=== PATIENT | male | born 1955 | race Caucasian/White ===

== ENCOUNTER 2022-03-31 22:08 | Inpatient (IN) | payer OTHER, MEDICAID ==
[~2022-03-31] VITALS: Ht 167.6 cm; Wt 74.8 kg
[2022-03-31 22:28] VITALS: BP_SYST 152
[2022-03-31] MEDS ORDERED: NACL 0.9% 1,000 ML IV ONE (22:45)
[2022-03-31 23:41] LABS: CALCIUM 8.8 mg/dL (8.4-11.0); CREATININE 1.39 mg/dL (0.55-1.30)
[2022-03-31 23:44] LABS: BASOPHILS % (AUTO) 0.3 % (0.0-2.0); EOSINOPHILS # (AUTO) 0.3 K/uL (0.0-0.4); HEMATOCRIT 37.4 % (36-54); HEMOGLOBIN 12.7 g/dL (14.0-18.0); LYMPHOCYTES # (AUTO) 0.4 K/uL (1.0-5.5); LYMPHOCYTES % (AUTO) 4.2 % (20.5-51.5); MEAN CORPUSCULAR HEMOGLOBIN 31 pg (27-31); MEAN CORPUSCULAR HGB CONC 34 % (32-36); MEAN CORPUSCULAR VOLUME 91 fL (79.0-98.0); MONOCYTES # (AUTO) 0.3 K/uL (0.0-1.0); MONOCYTES % (AUTO) 3.8 % (1.7-9.3); NEUTROPHILS # (AUTO) 7.6 K/uL (1.8-7.7); NEUTROPHILS % (AUTO) 88.7 % (40.0-70.0); PLATELET COUNT (AUTO) 170 K/uL (130-430); RED CELL DISTRIBUTION WIDTH 14.1 % (9.0-15.0); WHITE BLOOD COUNT (AUTO) 8.6 K/uL (4.8-10.8)
[2022-03-31] MEDS ORDERED: VANCOMYCIN HCL 1,000 MG in NS 250 ML IV ONE (23:45)
[2022-03-31] MEDS ORDERED: cefTRIAXone 1 GM IVPB PREMIX 50 ML IV ONE (23:45)
[2022-03-31 23:46] LABS: ALBUMIN 3.5 g/dL (3.4-4.8); TOTAL BILIRUBIN 0.7 mg/dL (0.0-1.0)
[2022-04-01] MEDS ORDERED: VANCOMYCIN HCL 1000 MG/VIAL IV ONE (00:03)
[2022-04-01 00:23] LABS: BILIRUBIN,URINE NEGATIVE (NEGATIVE); BLOOD, URINE NEGATIVE (NEGATIVE); CLARITY/URINE CLEAR (CLEAR); COLOR,URINE YELLOW (YELLOW); GLUCOSE,URINE NEGATIVE (NEGATIVE); KETONES,URINE NEGATIVE (NEGATIVE); LEUKOCYTE ESTERASE ,URINE NEGATIVE (NEGATIVE); NITRITE, URINE NEGATIVE (NEGATIVE); PROTEIN URINE NEGATIVE (NEGATIVE); UROBILINOGEN,URINE 0.2 (0.2-1.0)
[2022-04-01] MEDS ORDERED: ONDANSETRON HCL 4 MG/2 ML VIAL IVP ONE (00:30)
[2022-04-01] MEDS ORDERED: PRED5TAB PO (01:30)
[2022-04-01] MEDS ORDERED: CYCL25CA7 PO (01:30)
[2022-04-01] MEDS ORDERED: CEL250 PO (01:30)
[2022-04-01] MEDS ORDERED: METH1TAB PO (01:30)
[2022-04-01] MEDS ORDERED: TAMS-11 PO (01:30)
[2022-04-01] MEDS ORDERED: SIMV-343 PO (01:30)
[2022-04-01] MEDS ORDERED: ALL300 PO (01:30)
[2022-04-01] MEDS ORDERED: ONDANSETRON HCL 4 MG/2 ML VIAL ONE (02:44)
[2022-04-01] MEDS: ACETAMINOPHEN 325 MG TABLET PO PRN (03:08)
[2022-04-01 06:50] VITALS: BP_SYST 115
[2022-04-01] MEDS ORDERED: ACETAMINOPHEN 325 MG TABLET PO PRN (10:00)
[2022-04-01] MEDS ORDERED: LORazepam 2 MG/ML VIAL IVP PRN (10:00)
[2022-04-01] MEDS ORDERED: predniSONE 5 MG TABLET PO ONE (10:45)
[2022-04-01] MEDS ORDERED: SIMVASTATIN 20 MG TABLET PO ONE (10:45)
[2022-04-01 11:22] VITALS: BP_SYST 111
[2022-04-01] MEDS: TAMSULOSIN HCL 0.4 MG CAP PO SCH (11:35)
[2022-04-01] MEDS: CEFEPIME 1 GM in D5W 50 ML IV SCH (12:42)
[2022-04-01] MEDS ORDERED: NORMAL SALINE 5 ML DISP.SYRIN IVF SCH (14:00)
[2022-04-01] MEDS: ALLOPURINOL 300 MG TABLET (ZYLOPRIM) PO SCH (14:08)
[2022-04-01] MEDS: NORMAL SALINE 5 ML DISP.SYRIN IVF SCH ×2 (14:09→21:54)
[2022-04-01 15:38] VITALS: BP_SYST 122
[2022-04-01 20:00] VITALS: BP_SYST 97
[2022-04-01] MEDS ORDERED: SANDIMMUNE PO SCH (21:00)
[2022-04-01] MEDS ORDERED: NON-FORMULARY MEDICATION (Methenamine Hippurate (Hiprex) 1 TAB) PO SCH (21:00)
[2022-04-01] MEDS ORDERED: METHENAMINE HIPPURATE 1 GM PO SCH (21:00)
[2022-04-01] MEDS: NACL 0.9% 1,000 ML IV SCH (21:49)
[2022-04-01] MEDS: metroNIDAZOLE 500 mg/NS 100 ML IV SCH (21:50)
[2022-04-01] MEDS: SANDIMMUNE PO SCH (21:52)
[2022-04-01] MEDS: mycophenolate mofetiL 250 MG CAPSULE PO SCH (21:53)
[2022-04-01] MEDS: ONDANSETRON HCL 4 MG/2 ML VIAL IVP PRN (22:03)
[2022-04-02 00:31] VITALS: BP_SYST 119
[2022-04-02] MEDS: CEFEPIME 1 GM in D5W 50 ML IV SCH ×2 (00:37→13:53)
[2022-04-02] MEDS: NORMAL SALINE 5 ML DISP.SYRIN IVF SCH ×3 (06:00→21:58)
[2022-04-02 06:13] LABS: BASOPHILS % (AUTO) 0.5 % (0.0-2.0); EOSINOPHILS # (AUTO) 0.3 K/uL (0.0-0.4); EOSINOPHILS % (AUTO) 5.4 % (0.0-4.0); HEMATOCRIT 33.3 % (36-54); HEMOGLOBIN 11.1 g/dL (14.0-18.0); LYMPHOCYTES # (AUTO) 0.7 K/uL (1.0-5.5); LYMPHOCYTES % (AUTO) 11.3 % (20.5-51.5); MEAN CORPUSCULAR HEMOGLOBIN 31 pg (27-31); MEAN CORPUSCULAR HGB CONC 33 % (32-36); MEAN CORPUSCULAR VOLUME 93 fL (79.0-98.0); MONOCYTES # (AUTO) 0.5 K/uL (0.0-1.0); NEUTROPHILS # (AUTO) 4.7 K/uL (1.8-7.7); NEUTROPHILS % (AUTO) 74.8 % (40.0-70.0); PLATELET COUNT (AUTO) 143 K/uL (130-430); RED BLOOD CELL COUNT(AUTO) 3.58 MIL/uL (4.2-6.2); RED CELL DISTRIBUTION WIDTH 14.4 % (9.0-15.0); WHITE BLOOD COUNT (AUTO) 6.3 K/uL (4.8-10.8)
[2022-04-02 07:28] LABS: ERYTHROCYTE SEDIMENTATION RATE 20 MM/HR (0-15)
[2022-04-02 08:09] LABS: CALCIUM 7.8 mg/dL (8.4-11.0); CREATININE 1.26 mg/dL (0.55-1.30); PHOSPHORUS 3.5 mg/dL (2.7-4.5)
[2022-04-02 08:13] VITALS: BP_SYST 124
[2022-04-02] MEDS: NACL 0.9% 1,000 ML IV SCH ×2 (09:24→21:57)
[2022-04-02] MEDS: metroNIDAZOLE 500 mg/NS 100 ML IV SCH ×2 (09:38→21:56)
[2022-04-02] MEDS: mycophenolate mofetiL 250 MG CAPSULE PO SCH ×2 (09:39→21:56)
[2022-04-02] MEDS: SANDIMMUNE PO SCH ×2 (09:39→21:54)
[2022-04-02] MEDS: SIMVASTATIN 20 MG TABLET PO SCH (09:40)
[2022-04-02] MEDS: predniSONE 5 MG TABLET PO SCH (09:40)
[2022-04-02 11:24] VITALS: BP_SYST 123
[2022-04-02] MEDS: TAMSULOSIN HCL 0.4 MG CAP PO SCH (12:49)
[2022-04-02] MEDS: ALLOPURINOL 300 MG TABLET (ZYLOPRIM) PO SCH (12:50)
[2022-04-02 15:21] VITALS: BP_SYST 113
[2022-04-02 20:00] VITALS: BP_SYST 141
[2022-04-03] MEDS: CEFEPIME 1 GM in D5W 50 ML IV SCH ×2 (00:04→13:11)
[2022-04-03 00:39] VITALS: BP_SYST 157
[2022-04-03] MEDS: NORMAL SALINE 5 ML DISP.SYRIN IVF SCH ×3 (05:04→22:00)
[2022-04-03 06:27] LABS: BASOPHILS % (AUTO) 0.4 % (0.0-2.0); EOSINOPHILS # (AUTO) 0.3 K/uL (0.0-0.4); EOSINOPHILS % (AUTO) 5.7 % (0.0-4.0); HEMATOCRIT 31.9 % (36-54); HEMOGLOBIN 10.9 g/dL (14.0-18.0); LYMPHOCYTES # (AUTO) 1.1 K/uL (1.0-5.5); MEAN CORPUSCULAR HEMOGLOBIN 31 pg (27-31); MEAN CORPUSCULAR HGB CONC 34 % (32-36); MEAN CORPUSCULAR VOLUME 90 fL (79.0-98.0); MONOCYTES # (AUTO) 0.6 K/uL (0.0-1.0); MONOCYTES % (AUTO) 8.9 % (1.7-9.3); NEUTROPHILS # (AUTO) 4.1 K/uL (1.8-7.7); PLATELET COUNT (AUTO) 143 K/uL (130-430); RED BLOOD CELL COUNT(AUTO) 3.55 MIL/uL (4.2-6.2); WHITE BLOOD COUNT (AUTO) 6.2 K/uL (4.8-10.8)
[2022-04-03 07:07] LABS: HSV 2 IgG, TYPE SPECIFIC <0.91 index (0.00-0.90)
[2022-04-03 07:15] LABS: ERYTHROCYTE SEDIMENTATION RATE 19 MM/HR (0-15)
[2022-04-03 07:17] LABS: ALBUMIN 2.6 g/dL (3.4-4.8); C-REACTIVE PROTEIN QUANT 1.7 mg/dL (0-0.5); CALCIUM 7.7 mg/dL (8.4-11.0); CREATININE 1.2 mg/dL (0.55-1.30); PHOSPHORUS 3.5 mg/dL (2.7-4.5); TOTAL BILIRUBIN 0.5 mg/dL (0.0-1.0)
[2022-04-03 07:38] VITALS: BP_SYST 126
[2022-04-03] MEDS: metroNIDAZOLE 500 mg/NS 100 ML IV SCH ×2 (09:09→20:57)
[2022-04-03] MEDS: SIMVASTATIN 20 MG TABLET PO SCH (09:11)
[2022-04-03] MEDS: SANDIMMUNE PO SCH ×2 (09:11→21:01)
[2022-04-03] MEDS: predniSONE 5 MG TABLET PO SCH (09:11)
[2022-04-03] MEDS: mycophenolate mofetiL 250 MG CAPSULE PO SCH ×2 (09:12→20:58)
[2022-04-03 12:00] VITALS: BP_SYST 124
[2022-04-03] MEDS: TAMSULOSIN HCL 0.4 MG CAP PO SCH (12:48)
[2022-04-03] MEDS: ALLOPURINOL 300 MG TABLET (ZYLOPRIM) PO SCH (12:49)
[2022-04-03 16:00] VITALS: BP_SYST 128
[2022-04-03 20:00] VITALS: BP_SYST 124
[2022-04-04] VITALS (8 sets, daily range): BP systolic 130–146
[2022-04-04] MEDS: CEFEPIME 1 GM in D5W 50 ML IV SCH ×2 (02:14→15:05)
[2022-04-04] MEDS: NACL 0.9% 1,000 ML IV SCH ×3 (02:17→22:11)
[2022-04-04] MEDS: NORMAL SALINE 5 ML DISP.SYRIN IVF SCH ×3 (06:00→22:10)
[2022-04-04] MEDS: metroNIDAZOLE 500 mg/NS 100 ML IV SCH (09:56)
[2022-04-04 10:01] LABS: BASOPHILS % (AUTO) 0.5 % (0.0-2.0); EOSINOPHILS # (AUTO) 0.4 K/uL (0.0-0.4); EOSINOPHILS % (AUTO) 7.2 % (0.0-4.0); HEMATOCRIT 35.3 % (36-54); HEMOGLOBIN 11.6 g/dL (14.0-18.0); LYMPHOCYTES # (AUTO) 1.4 K/uL (1.0-5.5); LYMPHOCYTES % (AUTO) 23.5 % (20.5-51.5); MEAN CORPUSCULAR HEMOGLOBIN 31 pg (27-31); MEAN CORPUSCULAR HGB CONC 33 % (32-36); MONOCYTES # (AUTO) 0.6 K/uL (0.0-1.0); MONOCYTES % (AUTO) 9.6 % (1.7-9.3); NEUTROPHILS # (AUTO) 3.5 K/uL (1.8-7.7); NEUTROPHILS % (AUTO) 59.2 % (40.0-70.0); PLATELET COUNT (AUTO) 161 K/uL (130-430); RED BLOOD CELL COUNT(AUTO) 3.78 MIL/uL (4.2-6.2); RED CELL DISTRIBUTION WIDTH 14.1 % (9.0-15.0); WHITE BLOOD COUNT (AUTO) 5.9 K/uL (4.8-10.8)
[2022-04-04 10:03] LABS: MEAN CORPUSCULAR VOLUME 93 fL (79.0-98.0)
[2022-04-04 10:21] LABS: C-REACTIVE PROTEIN QUANT 0.2 mg/dL (0-0.5); CALCIUM 8.3 mg/dL (8.4-11.0); CREATININE 1.12 mg/dL (0.55-1.30); PHOSPHORUS 3.4 mg/dL (2.7-4.5)
[2022-04-04 10:54] LABS: ERYTHROCYTE SEDIMENTATION RATE 20 MM/HR (0-15)
[2022-04-04] MEDS ORDERED: MIDAZOLAM HCL 2 MG/2 ML VIAL (VERSED) IVP ONE (14:30)
[2022-04-04] MEDS ORDERED: fentaNYL CITRATE/PF 100 MCG/2 ML AMP IVP ONE (14:30)
[2022-04-04] MEDS ORDERED: MIDAZOLAM HCL 2 MG/2 ML VIAL (VERSED) ONE (14:42)
[2022-04-04] MEDS ORDERED: MIDAZOLAM HCL 5 MG/5 ML VIAL IVP ONE (14:45)
[2022-04-04] MEDS: VANCOMYCIN HCL 750 MG in NS 250 ML IV SCH (15:06)
[2022-04-04] MEDS: SIMVASTATIN 20 MG TABLET PO SCH (16:04)
[2022-04-04] MEDS: predniSONE 5 MG TABLET PO SCH (16:04)
[2022-04-04] MEDS: mycophenolate mofetiL 250 MG CAPSULE PO SCH ×2 (16:04→22:08)
[2022-04-04] MEDS: TAMSULOSIN HCL 0.4 MG CAP PO SCH (16:04)
[2022-04-04] MEDS: SANDIMMUNE PO SCH ×2 (16:05→22:09)
[2022-04-04] MEDS: ALLOPURINOL 300 MG TABLET (ZYLOPRIM) PO SCH (16:40)
[2022-04-04] MEDS: ACYCLOVIR IV 500 MG in D5W 100 ML IV SCH (22:17)
[2022-04-05 00:18] VITALS: BP_SYST 140
[2022-04-05] MEDS: CEFEPIME 1 GM in D5W 50 ML IV SCH ×2 (00:31→14:34)
[2022-04-05] MEDS: VANCOMYCIN HCL 750 MG in NS 250 ML IV SCH ×2 (01:11→14:35)
[2022-04-05] MEDS: NORMAL SALINE 5 ML DISP.SYRIN IVF SCH ×3 (05:38→21:12)
[2022-04-05 08:07] LABS: BASOPHILS % (AUTO) 0.4 % (0.0-2.0); EOSINOPHILS # (AUTO) 0.5 K/uL (0.0-0.4); HEMATOCRIT 36.5 % (36-54); HEMOGLOBIN 12.1 g/dL (14.0-18.0); LYMPHOCYTES # (AUTO) 1.3 K/uL (1.0-5.5); LYMPHOCYTES % (AUTO) 19.2 % (20.5-51.5); MEAN CORPUSCULAR HEMOGLOBIN 31 pg (27-31); MEAN CORPUSCULAR HGB CONC 33 % (32-36); MEAN CORPUSCULAR VOLUME 93 fL (79.0-98.0); MONOCYTES # (AUTO) 0.5 K/uL (0.0-1.0); MONOCYTES % (AUTO) 8.4 % (1.7-9.3); NEUTROPHILS # (AUTO) 4.2 K/uL (1.8-7.7); PLATELET COUNT (AUTO) 173 K/uL (130-430); RED BLOOD CELL COUNT(AUTO) 3.94 MIL/uL (4.2-6.2); RED CELL DISTRIBUTION WIDTH 14.2 % (9.0-15.0); WHITE BLOOD COUNT (AUTO) 6.5 K/uL (4.8-10.8)
[2022-04-05 08:33] LABS: ANION GAP 13 (5-15); C-REACTIVE PROTEIN QUANT < 0.2 mg/dL (0-0.5); CALCIUM 8.6 mg/dL (8.4-11.0); CHLORIDE 107 mmol/L (98-107); CREATININE 1.17 mg/dL (0.55-1.30); GLUCOSE 98 mg/dL (70-99); PHOSPHORUS 3.5 mg/dL (2.7-4.5); UREA NITROGEN, BLOOD 23 mg/dL (8-21)
[2022-04-05 08:49] LABS: GFR AFRICAN AMERICAN 80 mL/min (>90)
[2022-04-05 08:54] VITALS: BP_SYST 135
[2022-04-05 09:24] LABS: ERYTHROCYTE SEDIMENTATION RATE 19 MM/HR (0-15)
[2022-04-05] MEDS: ACYCLOVIR IV 500 MG in D5W 100 ML IV SCH ×2 (09:49→21:10)
[2022-04-05] MEDS: predniSONE 5 MG TABLET PO SCH (09:49)
[2022-04-05] MEDS: SIMVASTATIN 20 MG TABLET PO SCH (09:50)
[2022-04-05] MEDS: SANDIMMUNE PO SCH ×2 (09:52→21:11)
[2022-04-05] MEDS: mycophenolate mofetiL 250 MG CAPSULE PO SCH ×2 (09:53→21:10)
[2022-04-05 11:43] VITALS: BP_SYST 127
[2022-04-05] MEDS: NACL 0.9% 1,000 ML IV SCH (14:24)
[2022-04-05] MEDS: TAMSULOSIN HCL 0.4 MG CAP PO SCH (14:33)
[2022-04-05] MEDS: ALLOPURINOL 300 MG TABLET (ZYLOPRIM) PO SCH (14:36)
[2022-04-05 16:40] VITALS: BP_SYST 123
[2022-04-05 19:30] VITALS: BP_SYST 144
[2022-04-06] MEDS: CEFEPIME 1 GM in D5W 50 ML IV SCH (00:19)
[2022-04-06 00:34] VITALS: BP_SYST 145
[2022-04-06] MEDS: VANCOMYCIN HCL 750 MG in NS 250 ML IV SCH ×2 (01:01→13:03)
[2022-04-06] MEDS: NACL 0.9% 1,000 ML IV SCH ×2 (05:19→22:22)
[2022-04-06] MEDS: NORMAL SALINE 5 ML DISP.SYRIN IVF SCH ×3 (05:20→22:22)
[2022-04-06 06:38] LABS: BASOPHILS % (AUTO) 0.5 % (0.0-2.0); EOSINOPHILS # (AUTO) 0.5 K/uL (0.0-0.4); EOSINOPHILS % (AUTO) 8.8 % (0.0-4.0); HEMATOCRIT 31.7 % (36-54); HEMOGLOBIN 10.9 g/dL (14.0-18.0); LYMPHOCYTES # (AUTO) 1.5 K/uL (1.0-5.5); LYMPHOCYTES % (AUTO) 23.4 % (20.5-51.5); MEAN CORPUSCULAR HEMOGLOBIN 31 pg (27-31); MEAN CORPUSCULAR HGB CONC 35 % (32-36); MEAN CORPUSCULAR VOLUME 89 fL (79.0-98.0); MONOCYTES # (AUTO) 0.6 K/uL (0.0-1.0); MONOCYTES % (AUTO) 9.3 % (1.7-9.3); NEUTROPHILS # (AUTO) 3.6 K/uL (1.8-7.7); PLATELET COUNT (AUTO) 155 K/uL (130-430); RED BLOOD CELL COUNT(AUTO) 3.55 MIL/uL (4.2-6.2); RED CELL DISTRIBUTION WIDTH 13.8 % (9.0-15.0); WHITE BLOOD COUNT (AUTO) 6.2 K/uL (4.8-10.8)
[2022-04-06 07:05] LABS: ALANINE AMINOTRANSFERASE 31 U/L (12-78); ALBUMIN 2.7 g/dL (3.4-4.8); ANION GAP 9 (5-15); ASPARTATE AMINOTRANSFERASE 21 U/L (10-37); CALCIUM 7.8 mg/dL (8.4-11.0); CHLORIDE 110 mmol/L (98-107); CREATININE 1.14 mg/dL (0.55-1.30); GLUCOSE 78 mg/dL (70-99); PHOSPHORUS 3.6 mg/dL (2.7-4.5); TOTAL BILIRUBIN 0.5 mg/dL (0.0-1.0); UREA NITROGEN, BLOOD 24 mg/dL (8-21)
[2022-04-06 07:43] LABS: C-REACTIVE PROTEIN QUANT < 0.2 mg/dL (0-0.5); GFR AFRICAN AMERICAN 83 mL/min (>90)
[2022-04-06 07:54] LABS: ERYTHROCYTE SEDIMENTATION RATE 12 MM/HR (0-15)
[2022-04-06 08:00] VITALS: BP_SYST 141
[2022-04-06] MEDS: SANDIMMUNE PO SCH ×2 (10:00→22:21)
[2022-04-06] MEDS: predniSONE 5 MG TABLET PO SCH (10:01)
[2022-04-06] MEDS: SIMVASTATIN 20 MG TABLET PO SCH (10:01)
[2022-04-06] MEDS: ACYCLOVIR IV 500 MG in D5W 100 ML IV SCH ×2 (10:01→22:21)
[2022-04-06] MEDS: mycophenolate mofetiL 250 MG CAPSULE PO SCH ×2 (10:46→22:19)
[2022-04-06 11:07] LABS: INR 1.1 (0.80-1.20); PROTHROMBIN TIME 11.4 SECS (9.5-12.5)
[2022-04-06 11:19] VITALS: BP_SYST 134
[2022-04-06] MEDS: ONDANSETRON HCL 4 MG/2 ML VIAL IVP PRN (12:50)
[2022-04-06] MEDS: ALLOPURINOL 300 MG TABLET (ZYLOPRIM) PO SCH (13:02)
[2022-04-06] MEDS: TAMSULOSIN HCL 0.4 MG CAP PO SCH (13:05)
[2022-04-06 16:00] VITALS: BP_SYST 147
[2022-04-06 20:47] VITALS: BP_SYST 158
[2022-04-06 20:48] VITALS: BP_SYST 158
[2022-04-07] MEDS: VANCOMYCIN HCL 750 MG in NS 250 ML IV SCH ×2 (02:14→12:40)
[2022-04-07 06:15] LABS: BASOPHILS % (AUTO) 0.5 % (0.0-2.0); EOSINOPHILS # (AUTO) 0.6 K/uL (0.0-0.4); EOSINOPHILS % (AUTO) 8.1 % (0.0-4.0); HEMATOCRIT 31.3 % (36-54); HEMOGLOBIN 10.5 g/dL (14.0-18.0); LYMPHOCYTES # (AUTO) 1.4 K/uL (1.0-5.5); LYMPHOCYTES % (AUTO) 20.4 % (20.5-51.5); MEAN CORPUSCULAR HEMOGLOBIN 31 pg (27-31); MEAN CORPUSCULAR HGB CONC 34 % (32-36); MEAN CORPUSCULAR VOLUME 92 fL (79.0-98.0); MONOCYTES # (AUTO) 0.6 K/uL (0.0-1.0); NEUTROPHILS # (AUTO) 4.2 K/uL (1.8-7.7); PLATELET COUNT (AUTO) 157 K/uL (130-430); RED CELL DISTRIBUTION WIDTH 13.9 % (9.0-15.0); WHITE BLOOD COUNT (AUTO) 6.8 K/uL (4.8-10.8)
[2022-04-07 06:31] LABS: ANION GAP 10 (5-15); CALCIUM 7.9 mg/dL (8.4-11.0); CHLORIDE 112 mmol/L (98-107); CREATININE 1.05 mg/dL (0.55-1.30); GLUCOSE 69 mg/dL (70-99); UREA NITROGEN, BLOOD 18 mg/dL (8-21)
[2022-04-07] MEDS: ACETAMINOPHEN 325 MG TABLET PO PRN (06:40)
[2022-04-07 07:56] LABS: C-REACTIVE PROTEIN QUANT < 0.2 mg/dL (0-0.5); GFR AFRICAN AMERICAN 91 mL/min (>90)
[2022-04-07 08:00] VITALS: BP_SYST 149
[2022-04-07] MEDS: NORMAL SALINE 5 ML DISP.SYRIN IVF SCH ×2 (08:27→14:05)
[2022-04-07] MEDS: mycophenolate mofetiL 250 MG CAPSULE PO SCH (08:33)
[2022-04-07] MEDS: predniSONE 5 MG TABLET PO SCH (08:33)
[2022-04-07] MEDS: SIMVASTATIN 20 MG TABLET PO SCH (08:33)
[2022-04-07] MEDS: SANDIMMUNE PO SCH (08:34)
[2022-04-07] MEDS: ACYCLOVIR IV 500 MG in D5W 100 ML IV SCH (09:00)
[2022-04-07 09:39] LABS: ERYTHROCYTE SEDIMENTATION RATE 7 MM/HR (0-15)
[2022-04-07] MEDS ORDERED: VANC750F2 IV (09:53)
[2022-04-07 12:00] VITALS: BP_SYST 148
[2022-04-07] MEDS: NACL 0.9% 1,000 ML IV SCH (12:36)
[2022-04-07] MEDS: ALLOPURINOL 300 MG TABLET (ZYLOPRIM) PO SCH (12:42)
[2022-04-07] MEDS: TAMSULOSIN HCL 0.4 MG CAP PO SCH (12:43)
[2022-04-07 14:53] VITALS: BP_SYST 148
== END 2022-04-07 15:10 | disposition home health service (06) | DRG 314 ==
LOC: SED 22:08 → SMU 04-01 02:49
PROVIDERS: ADMIT Preventive Medicine Preventive Medicine/Occupational Environmental Medicine; ATTEND Preventive Medicine Preventive Medicine/Occupational Environmental Medicine
PROC: 02HV33Z Insertion of Infusion Device into Superior Vena Cava, Percutaneous Approach (ICD-10-PCS; principal; 2022-04-06)
PROC: B548ZZA Ultrasonography of Superior Vena Cava, Guidance (ICD-10-PCS; 2022-04-06)
DX: T82.7XXA Infection and inflammatory reaction due to other cardiac and vascular devices, implants and grafts, initial encounter (principal); A41.9 Sepsis, unspecified organism; I33.0 Acute and subacute infective endocarditis; Z94.0 Kidney transplant status; N18.9 Chronic kidney disease, unspecified; Y83.8 Other surgical procedures as the cause of abnormal reaction of the patient, or of later complication, without mention of misadventure at the time of the procedure; D63.1 Anemia in chronic kidney disease; E78.5 Hyperlipidemia, unspecified; B00.9 Herpesviral infection, unspecified; E83.51 Hypocalcemia; Z20.822 Contact with and (suspected) exposure to COVID-19; I12.9 Hypertensive chronic kidney disease with stage 1 through stage 4 chronic kidney disease, or unspecified chronic kidney disease; N40.0 Benign prostatic hyperplasia without lower urinary tract symptoms; Z87.891 Personal history of nicotine dependence; Z88.5 Allergy status to narcotic agent; Z88.0 Allergy status to penicillin; Z79.899 Other long term (current) drug therapy; Z99.2 Dependence on renal dialysis; Y92.89 Other specified places as the place of occurrence of the external cause
CPT/HCPCS: 36415; 71045; 80048; 80053; 80202; 81003; 83605; 83615; 83735; 83880; 84100; 84484; 85025; 85610-TC; 85651-TC; 85730-TC; 86140; 86635; 86695; 86696; 87040; 87045-TC; 87081; 87497; 89055; 93005; 93312; 96365; 96367; 97116-GP; 97163-GP; 99285; J0133; J0692; J0696; J2060; J2405; J3010; J3370; J3465; J3490; J7050; J7060; J7512; J7515; J7517

== ENCOUNTER 2022-09-16 00:14 | Inpatient (IN) | payer OTHER, MEDICAID ==
[~2022-09-16] VITALS: Ht 165.1 cm; Wt 81.6 kg
[~2022-09-16 00:14] MED LIST: ALL300 PO; CEL250 PO; CYCL25CA7 PO; METH1TAB PO; PRED5TAB PO; SIMV-343 PO; TAMS-11 PO; VANC750F2 IV
[2022-09-16 00:42] VITALS: BP_SYST 106; PULSE 146; RESP 19; TEMP 101.4; O2SAT 97
[2022-09-16] MEDS ORDERED: NS 1000 ML IV.SOLN IV ONE (01:30)
[2022-09-16] MEDS ORDERED: cefTRIAXone 1 GM IVPB PREMIX 50 ML IV ONE (01:30)
[2022-09-16 01:56] LABS: BASOPHILS % (AUTO) 0.2 % (0.0-2.0); EOSINOPHILS % (AUTO) 0.6 % (0.0-4.0); HEMATOCRIT 39.5 % (36-54); HEMOGLOBIN 13.4 g/dL (14.0-18.0); LYMPHOCYTES # (AUTO) 0.3 K/uL (1.0-5.5); LYMPHOCYTES % (AUTO) 6.6 % (20.5-51.5); MEAN CORPUSCULAR HEMOGLOBIN 32 pg (27-31); MEAN CORPUSCULAR HGB CONC 34 % (32-36); MEAN CORPUSCULAR VOLUME 93 fL (79.0-98.0); MONOCYTES % (AUTO) 0.3 % (1.7-9.3); NEUTROPHILS # (AUTO) 3.6 K/uL (1.8-7.7); NEUTROPHILS % (AUTO) 92.3 % (40.0-70.0); PLATELET COUNT (AUTO) 119 K/uL (130-430); RED BLOOD CELL COUNT(AUTO) 4.24 MIL/uL (4.2-6.2)
[2022-09-16 02:01] LABS: ANION GAP 12 (5-15); CALCIUM 8.3 mg/dL (8.4-11.0); CARBON DIOXIDE 21 mmol/L (23-29); CHLORIDE 109 mmol/L (98-107); CREATININE 1.99 mg/dL (0.55-1.30); GFR AFRICAN AMERICAN 43 mL/min (>90); GLUCOSE 97 mg/dL (74-106); SODIUM SERUM 142 mmol/L (136-145); UREA NITROGEN, BLOOD 28 mg/dL (8-21)
[2022-09-16 02:02] LABS: GFR NON AFRICAN-AMERICAN 36 mL/min (>90)
[2022-09-16 02:08] LABS: ALANINE AMINOTRANSFERASE 21 U/L (12-78); ALBUMIN 3.7 g/dL (3.4-4.8); ASPARTATE AMINOTRANSFERASE 22 U/L (10-37); TOTAL BILIRUBIN 0.8 mg/dL (0.0-1.0); TOTAL PROTEIN, SERUM 6.4 g/dL (6.4-8.3)
[2022-09-16 02:19] LABS: PROTHROMBIN TIME 10.8 SECS (9.5-12.5)
[2022-09-16] MEDS ORDERED: KCL 40 mEq in 100 mL (PREMIX) 100 ML IV ONE (04:00)
[2022-09-16] MEDS ORDERED: ACETAMINOPHEN 500 MG TABLET PO ONE (04:00)
[2022-09-16] MEDS: D5/0.45 NS 1,000 ML IV SCH ×2 (04:00→17:54)
[2022-09-16] MEDS ORDERED: KCL 20 mEq in 100 mL (PREMIX) 100 ML IV ONE ×2 (04:05→04:15)
[2022-09-16] MEDS ORDERED: LISI10TA29 PO (04:21)
[2022-09-16] MEDS ORDERED: PRED10TA PO (04:21)
[2022-09-16] MEDS ORDERED: ALLO300T2 PO (04:21)
[2022-09-16] MEDS ORDERED: TAMS0.4C96 PO (04:21)
[2022-09-16] MEDS ORDERED: FLUT1AER INH (04:21)
[2022-09-16] MEDS ORDERED: SIMV-43 PO (04:21)
[2022-09-16] MEDS ORDERED: OMEP20CA16 PO (04:21)
[2022-09-16] MEDS ORDERED: CEL250 PO (17:28)
[2022-09-16] MEDS ORDERED: METH1TAB79 PO (17:28)
[2022-09-16] MEDS ORDERED: CYCL25CA2 PO (17:28)
[2022-09-16] MEDS ORDERED: LORazepam 2 MG/ML VIAL IVP PRN (18:15)
[2022-09-16] MEDS ORDERED: ONDANSETRON HCL 4 MG/2 ML VIAL IVP PRN (18:15)
[2022-09-16] MEDS ORDERED: ACETAMINOPHEN 325 MG TABLET PO PRN (18:30)
[2022-09-16] MEDS ORDERED: D5/0.45 NS 1,000 ML IV SCH (18:45)
[2022-09-16] MEDS ORDERED: ALBUTEROL SULFATE 0.083% 2.5 MG/3 ML VIAL.NEB INH PRN (19:00)
[2022-09-16 20:00] VITALS: BP_SYST 124; PULSE 85; RESP 21; TEMP 101; O2SAT 99
[2022-09-16] MEDS ORDERED: NON-FORMULARY MEDICATION (Methenamine Hippurate (Hiprex) 1 TAB) PO SCH (21:00)
[2022-09-16] MEDS ORDERED: LOPERAMIDE HCL 2 MG CAPSULE PO PRN (21:15)
[2022-09-16] MEDS: SIMVASTATIN 20 MG TABLET PO SCH (21:29)
[2022-09-16] MEDS: mycophenolate mofetiL 250 MG CAPSULE PO SCH (21:30)
[2022-09-16 23:22] VITALS: BP_SYST 129; PULSE 86; O2SAT 96
[2022-09-17] VITALS (10 sets, daily range): BP systolic 100–138; PULSE 62–99; RESP 16–21; TEMP 96.5–101; O2SAT 94–99
[2022-09-17] MEDS: D5/0.45 NS 1,000 ML IV SCH ×3 (04:40→20:37)
[2022-09-17] MEDS: ACETAMINOPHEN 325 MG TABLET PO PRN ×2 (06:41→21:55)
[2022-09-17 07:05] LABS: BASOPHILS % (AUTO) 0.2 % (0.0-2.0); EOSINOPHILS # (AUTO) 0.1 K/uL (0.0-0.4); EOSINOPHILS % (AUTO) 1.2 % (0.0-4.0); HEMATOCRIT 32.2 % (36-54); HEMOGLOBIN 10.7 g/dL (14.0-18.0); LYMPHOCYTES # (AUTO) 0.6 K/uL (1.0-5.5); MEAN CORPUSCULAR HEMOGLOBIN 31 pg (27-31); MEAN CORPUSCULAR HGB CONC 33 % (32-36); MEAN CORPUSCULAR VOLUME 95 fL (79.0-98.0); MONOCYTES # (AUTO) 0.5 K/uL (0.0-1.0); MONOCYTES % (AUTO) 4.7 % (1.7-9.3); NEUTROPHILS # (AUTO) 9.3 K/uL (1.8-7.7); NEUTROPHILS % (AUTO) 87.9 % (40.0-70.0); PLATELET COUNT (AUTO) 88 K/uL (130-430); RED BLOOD CELL COUNT(AUTO) 3.41 MIL/uL (4.2-6.2); RED CELL DISTRIBUTION WIDTH 14.8 % (9.0-15.0); WHITE BLOOD COUNT (AUTO) 10.6 K/uL (4.8-10.8)
[2022-09-17 07:40] LABS: CREATININE 1.54 mg/dL (0.55-1.30); PHOSPHORUS 2.5 mg/dL (2.7-4.5); POTASSIUM 3.2 mmol/L (3.5-5.1)
[2022-09-17] MEDS: BUDESONIDE 0.5 MG/2 ML AMPUL.NEB INH SCH ×2 (07:56→19:19)
[2022-09-17 08:31] LABS: CALCIUM 6.7 mg/dL (8.4-11.0)
[2022-09-17 08:44] LABS: BILIRUBIN,URINE NEGATIVE (NEGATIVE); BLOOD, URINE NEGATIVE (NEGATIVE); CLARITY/URINE CLEAR (CLEAR); COLOR,URINE YELLOW (YELLOW); GLUCOSE,URINE NEGATIVE (NEGATIVE); KETONES,URINE NEGATIVE (NEGATIVE); LEUKOCYTE ESTERASE ,URINE NEGATIVE (NEGATIVE); NITRITE, URINE NEGATIVE (NEGATIVE); PROTEIN URINE TRACE (NEGATIVE)
[2022-09-17] MEDS ORDERED: FLUTICASONE/VILANTEROL 1 EACH BLST.W.DEV INH SCH (09:00)
[2022-09-17] MEDS ORDERED: ALLOPURINOL 300 MG TABLET (ZYLOPRIM) PO SCH (09:00)
[2022-09-17] MEDS ORDERED: OMEPRAZOLE Non-Formulary 20 MG CAPSULE.DR PO SCH (09:00)
[2022-09-17] MEDS: predniSONE 10 MG TABLET PO SCH (10:19)
[2022-09-17] MEDS: TAMSULOSIN HCL 0.4 MG CAP PO SCH (10:19)
[2022-09-17] MEDS: LISINOPRIL 10 MG TABLET (PRINIVIL) PO SCH (10:20)
[2022-09-17] MEDS: SANDIMMUNE PO SCH ×2 (10:20→20:33)
[2022-09-17] MEDS: PANTOPRAZOLE SODIUM 40 MG TAB PO SCH (10:21)
[2022-09-17] MEDS: mycophenolate mofetiL 250 MG CAPSULE PO SCH ×2 (10:21→20:32)
[2022-09-17] MEDS: ALLOPURINOL 300 MG TABLET (ZYLOPRIM) PO SCH (10:36)
[2022-09-17] MEDS ORDERED: K PHOS 30 MM in NS 250 ML IV ONE (11:00)
[2022-09-17 12:52] LABS: BASOPHILS % (AUTO) 0.2 % (0.0-2.0); EOSINOPHILS # (AUTO) 0.2 K/uL (0.0-0.4); EOSINOPHILS % (AUTO) 1.8 % (0.0-4.0); HEMATOCRIT 30.8 % (36-54); HEMOGLOBIN 9.8 g/dL (14.0-18.0); LYMPHOCYTES # (AUTO) 0.4 K/uL (1.0-5.5); LYMPHOCYTES % (AUTO) 4.6 % (20.5-51.5); MEAN CORPUSCULAR HEMOGLOBIN 31 pg (27-31); MEAN CORPUSCULAR HGB CONC 32 % (32-36); MEAN CORPUSCULAR VOLUME 98 fL (79.0-98.0); MONOCYTES # (AUTO) 0.5 K/uL (0.0-1.0); NEUTROPHILS % (AUTO) 88.4 % (40.0-70.0); PLATELET COUNT (AUTO) 80 K/uL (130-430); RED BLOOD CELL COUNT(AUTO) 3.15 MIL/uL (4.2-6.2); RED CELL DISTRIBUTION WIDTH 14.9 % (9.0-15.0); WHITE BLOOD COUNT (AUTO) 9.1 K/uL (4.8-10.8)
[2022-09-17] MEDS: SIMVASTATIN 20 MG TABLET PO SCH (20:32)
[2022-09-17] MEDS: CALCIUM 500 MG/TAB PO SCH (20:32)
[2022-09-18] VITALS: BP_SYST 110; PULSE 65; RESP 16; TEMP 97.8; O2SAT 97
[2022-09-18] MEDS ORDERED: metroNIDAZOLE 500 mg/NS 100 ML IV ONE (04:14)
[2022-09-18 04:54] LABS: BASOPHILS % (AUTO) 0.3 % (0.0-2.0); EOSINOPHILS # (AUTO) 0.1 K/uL (0.0-0.4); EOSINOPHILS % (AUTO) 1.8 % (0.0-4.0); HEMATOCRIT 35.2 % (36-54); HEMOGLOBIN 11.6 g/dL (14.0-18.0); LYMPHOCYTES # (AUTO) 0.7 K/uL (1.0-5.5); LYMPHOCYTES % (AUTO) 8.2 % (20.5-51.5); MEAN CORPUSCULAR HEMOGLOBIN 31 pg (27-31); MEAN CORPUSCULAR HGB CONC 33 % (32-36); MEAN CORPUSCULAR VOLUME 94 fL (79.0-98.0); MONOCYTES # (AUTO) 0.5 K/uL (0.0-1.0); NEUTROPHILS # (AUTO) 6.9 K/uL (1.8-7.7); NEUTROPHILS % (AUTO) 83.7 % (40.0-70.0); PLATELET COUNT (AUTO) 99 K/uL (130-430); RED BLOOD CELL COUNT(AUTO) 3.73 MIL/uL (4.2-6.2); RED CELL DISTRIBUTION WIDTH 15.2 % (9.0-15.0); WHITE BLOOD COUNT (AUTO) 8.3 K/uL (4.8-10.8)
[2022-09-18 05:08] LABS: CALCIUM 7.6 mg/dL (8.4-11.0); CREATININE 1.54 mg/dL (0.55-1.30); PHOSPHORUS 3.4 mg/dL (2.7-4.5); POTASSIUM 3.6 mmol/L (3.5-5.1)
[2022-09-18] MEDS: metroNIDAZOLE 500 mg/NS 100 ML IV SCH ×3 (06:14→22:31)
[2022-09-18] MEDS: D5/0.45 NS 1,000 ML IV SCH ×2 (06:19→15:32)
[2022-09-18] MEDS: BUDESONIDE 0.5 MG/2 ML AMPUL.NEB INH SCH ×2 (07:00→19:26)
[2022-09-18 07:15] VITALS: O2SAT 97
[2022-09-18 09:15] VITALS: BP_SYST 133; PULSE 60; RESP 16; TEMP 97.7; O2SAT 98
[2022-09-18] MEDS: PANTOPRAZOLE SODIUM 40 MG TAB PO SCH (09:19)
[2022-09-18] MEDS: CALCIUM 500 MG/TAB PO SCH ×2 (09:19→21:36)
[2022-09-18] MEDS: TAMSULOSIN HCL 0.4 MG CAP PO SCH (09:19)
[2022-09-18] MEDS: LISINOPRIL 10 MG TABLET (PRINIVIL) PO SCH (09:20)
[2022-09-18] MEDS: ALLOPURINOL 300 MG TABLET (ZYLOPRIM) PO SCH (09:21)
[2022-09-18] MEDS: SANDIMMUNE PO SCH ×2 (09:21→21:38)
[2022-09-18] MEDS: predniSONE 10 MG TABLET PO SCH (09:21)
[2022-09-18] MEDS: mycophenolate mofetiL 250 MG CAPSULE PO SCH ×2 (09:21→21:37)
[2022-09-18] MEDS: AZTREONAM 1 GM in NS 50 ML IV SCH ×3 (09:23→21:43)
[2022-09-18 17:00] VITALS: BP_SYST 134; PULSE 58; RESP 16; TEMP 98; O2SAT 98
[2022-09-18 20:00] VITALS: BP_SYST 130; PULSE 59; RESP 17; TEMP 97.8; O2SAT 96
[2022-09-18 20:17] VITALS: O2SAT 98
[2022-09-18] MEDS: ACETAMINOPHEN 325 MG TABLET PO PRN (20:37)
[2022-09-18] MEDS: SIMVASTATIN 20 MG TABLET PO SCH (21:37)
[2022-09-19 00:04] VITALS: BP_SYST 102; PULSE 49; RESP 18; TEMP 97.9; O2SAT 96
[2022-09-19] MEDS: D5/0.45 NS 1,000 ML IV SCH ×3 (02:00→22:00)
[2022-09-19] MEDS: AZTREONAM 1 GM in NS 50 ML IV SCH ×2 (05:02→13:24)
[2022-09-19] MEDS: metroNIDAZOLE 500 mg/NS 100 ML IV SCH ×2 (06:12→14:22)
[2022-09-19 06:46] LABS: CALCIUM 7.4 mg/dL (8.4-11.0); CREATININE 1.41 mg/dL (0.55-1.30); PHOSPHORUS 2.9 mg/dL (2.7-4.5); POTASSIUM 3.4 mmol/L (3.5-5.1)
[2022-09-19] MEDS: BUDESONIDE 0.5 MG/2 ML AMPUL.NEB INH SCH (07:00)
[2022-09-19 07:05] VITALS: PULSE 72; O2SAT 98
[2022-09-19 07:21] LABS: BASOPHILS % (AUTO) 0.2 % (0.0-2.0); EOSINOPHILS # (AUTO) 0.1 K/uL (0.0-0.4); EOSINOPHILS % (AUTO) 1.9 % (0.0-4.0); HEMATOCRIT 33.8 % (36-54); HEMOGLOBIN 11.2 g/dL (14.0-18.0); LYMPHOCYTES # (AUTO) 0.8 K/uL (1.0-5.5); LYMPHOCYTES % (AUTO) 11.2 % (20.5-51.5); MEAN CORPUSCULAR HEMOGLOBIN 31 pg (27-31); MEAN CORPUSCULAR HGB CONC 33 % (32-36); MEAN CORPUSCULAR VOLUME 94 fL (79.0-98.0); MONOCYTES # (AUTO) 0.4 K/uL (0.0-1.0); MONOCYTES % (AUTO) 5.8 % (1.7-9.3); NEUTROPHILS # (AUTO) 5.6 K/uL (1.8-7.7); NEUTROPHILS % (AUTO) 80.9 % (40.0-70.0); PLATELET COUNT (AUTO) 112 K/uL (130-430); RED CELL DISTRIBUTION WIDTH 14.7 % (9.0-15.0); WHITE BLOOD COUNT (AUTO) 6.9 K/uL (4.8-10.8)
[2022-09-19 08:00] VITALS: BP_SYST 137; PULSE 49; RESP 18; TEMP 97.6; O2SAT 96
[2022-09-19 08:40] LABS: ERYTHROCYTE SEDIMENTATION RATE 24 MM/HR (0-15)
[2022-09-19] MEDS: predniSONE 10 MG TABLET PO SCH (09:08)
[2022-09-19] MEDS: PANTOPRAZOLE SODIUM 40 MG TAB PO SCH (09:08)
[2022-09-19] MEDS: TAMSULOSIN HCL 0.4 MG CAP PO SCH (09:08)
[2022-09-19] MEDS: mycophenolate mofetiL 250 MG CAPSULE PO SCH ×2 (09:08→21:15)
[2022-09-19] MEDS: CALCIUM 500 MG/TAB PO SCH ×2 (09:08→21:13)
[2022-09-19] MEDS: LISINOPRIL 10 MG TABLET (PRINIVIL) PO SCH (09:08)
[2022-09-19] MEDS: SANDIMMUNE PO SCH ×2 (09:09→21:15)
[2022-09-19] MEDS: ALLOPURINOL 300 MG TABLET (ZYLOPRIM) PO SCH (09:22)
[2022-09-19 11:12] VITALS: BP_SYST 142; PULSE 65; RESP 17; TEMP 97.8; O2SAT 97
[2022-09-19] MEDS: ACETAMINOPHEN 325 MG TABLET PO PRN (12:09)
[2022-09-19] MEDS ORDERED: BUDESONIDE 0.5 MG/2 ML AMPUL.NEB INH PRN (16:00)
[2022-09-19 16:54] VITALS: BP_SYST 134; PULSE 58; RESP 18; TEMP 97.9; O2SAT 97
[2022-09-19] MEDS ORDERED: POTASSIUM CHLORIDE 20 MEQ TAB.PRT.SR PO ONE (19:00)
[2022-09-19 20:00] VITALS: BP_SYST 121; PULSE 55; RESP 18; TEMP 98.1; O2SAT 97
[2022-09-19] MEDS: SIMVASTATIN 20 MG TABLET PO SCH (21:13)
[2022-09-19] MEDS: MEROPENEM 1 GM in NS 100 ML IV SCH (21:16)
[2022-09-20] VITALS: BP_SYST 132; PULSE 58; RESP 14; TEMP 97.8; O2SAT 96
[2022-09-20] MEDS: D5/0.45 NS 1,000 ML IV SCH ×2 (05:08→18:16)
[2022-09-20] MEDS: MEROPENEM 1 GM in NS 100 ML IV SCH ×3 (05:09→21:23)
[2022-09-20 06:07] LABS: BASOPHILS % (AUTO) 0.5 % (0.0-2.0); EOSINOPHILS # (AUTO) 0.1 K/uL (0.0-0.4); EOSINOPHILS % (AUTO) 1.6 % (0.0-4.0); HEMATOCRIT 33.5 % (36-54); HEMOGLOBIN 11.1 g/dL (14.0-18.0); LYMPHOCYTES # (AUTO) 0.9 K/uL (1.0-5.5); LYMPHOCYTES % (AUTO) 14.6 % (20.5-51.5); MEAN CORPUSCULAR HEMOGLOBIN 31 pg (27-31); MEAN CORPUSCULAR HGB CONC 33 % (32-36); MEAN CORPUSCULAR VOLUME 93 fL (79.0-98.0); MONOCYTES # (AUTO) 0.4 K/uL (0.0-1.0); MONOCYTES % (AUTO) 5.7 % (1.7-9.3); NEUTROPHILS # (AUTO) 4.9 K/uL (1.8-7.7); NEUTROPHILS % (AUTO) 77.6 % (40.0-70.0); PLATELET COUNT (AUTO) 128 K/uL (130-430); RED BLOOD CELL COUNT(AUTO) 3.59 MIL/uL (4.2-6.2); RED CELL DISTRIBUTION WIDTH 14.9 % (9.0-15.0); WHITE BLOOD COUNT (AUTO) 6.4 K/uL (4.8-10.8)
[2022-09-20 06:28] LABS: CALCIUM 8.3 mg/dL (8.4-11.0); CREATININE 1.31 mg/dL (0.55-1.30); PHOSPHORUS 3.8 mg/dL (2.7-4.5); POTASSIUM 4.2 mmol/L (3.5-5.1)
[2022-09-20 07:00] VITALS: O2SAT 94
[2022-09-20 07:50] LABS: ERYTHROCYTE SEDIMENTATION RATE 23 MM/HR (0-15)
[2022-09-20 08:00] VITALS: BP_SYST 152; PULSE 51; RESP 16; TEMP 98.1; O2SAT 95
[2022-09-20] MEDS: PANTOPRAZOLE SODIUM 40 MG TAB PO SCH (09:19)
[2022-09-20] MEDS: TAMSULOSIN HCL 0.4 MG CAP PO SCH (09:19)
[2022-09-20] MEDS: predniSONE 10 MG TABLET PO SCH (09:19)
[2022-09-20] MEDS: ALLOPURINOL 300 MG TABLET (ZYLOPRIM) PO SCH (09:19)
[2022-09-20] MEDS: SANDIMMUNE PO SCH ×2 (09:20→21:22)
[2022-09-20] MEDS: mycophenolate mofetiL 250 MG CAPSULE PO SCH ×2 (09:20→21:22)
[2022-09-20] MEDS: LISINOPRIL 10 MG TABLET (PRINIVIL) PO SCH (09:20)
[2022-09-20] MEDS: CALCIUM 500 MG/TAB PO SCH ×2 (09:20→21:21)
[2022-09-20 11:03] VITALS: BP_SYST 133; PULSE 64; RESP 19; TEMP 98.4; O2SAT 97
[2022-09-20 12:45] LABS: INR 1.1 (0.80-1.20); PROTHROMBIN TIME 10.9 SECS (9.5-12.5)
[2022-09-20 17:07] VITALS: BP_SYST 123; PULSE 58; RESP 19; TEMP 98.3; O2SAT 96
[2022-09-20 20:00] VITALS: BP_SYST 141; PULSE 61; RESP 18; TEMP 98; O2SAT 95
[2022-09-20] MEDS: SIMVASTATIN 20 MG TABLET PO SCH (21:22)
[2022-09-21 04:31] LABS: BASOPHILS % (AUTO) 0.6 % (0.0-2.0); EOSINOPHILS # (AUTO) 0.1 K/uL (0.0-0.4); EOSINOPHILS % (AUTO) 1.2 % (0.0-4.0); HEMATOCRIT 34.9 % (36-54); HEMOGLOBIN 11.9 g/dL (14.0-18.0); LYMPHOCYTES # (AUTO) 1.4 K/uL (1.0-5.5); LYMPHOCYTES % (AUTO) 18.1 % (20.5-51.5); MEAN CORPUSCULAR HEMOGLOBIN 32 pg (27-31); MEAN CORPUSCULAR HGB CONC 34 % (32-36); MEAN CORPUSCULAR VOLUME 93 fL (79.0-98.0); MONOCYTES # (AUTO) 0.6 K/uL (0.0-1.0); MONOCYTES % (AUTO) 7.5 % (1.7-9.3); NEUTROPHILS # (AUTO) 5.5 K/uL (1.8-7.7); NEUTROPHILS % (AUTO) 72.6 % (40.0-70.0); PLATELET COUNT (AUTO) 127 K/uL (130-430); RED BLOOD CELL COUNT(AUTO) 3.75 MIL/uL (4.2-6.2); WHITE BLOOD COUNT (AUTO) 7.6 K/uL (4.8-10.8)
[2022-09-21 04:37] LABS: CALCIUM 8.6 mg/dL (8.4-11.0); CREATININE 1.53 mg/dL (0.55-1.30); PHOSPHORUS 4.1 mg/dL (2.7-4.5); POTASSIUM 3.7 mmol/L (3.5-5.1)
[2022-09-21 04:50] VITALS: BP_SYST 142; PULSE 54; RESP 20; TEMP 97.4; O2SAT 98
[2022-09-21 05:12] LABS: ERYTHROCYTE SEDIMENTATION RATE 14 MM/HR (0-15)
[2022-09-21] MEDS: D5/0.45 NS 1,000 ML IV SCH ×2 (05:12→15:09)
[2022-09-21] MEDS: MEROPENEM 1 GM in NS 100 ML IV SCH ×3 (05:12→21:20)
[2022-09-21 07:00] VITALS: O2SAT 96
[2022-09-21] MEDS ORDERED: ERTA1VIA IJ (09:28)
[2022-09-21] MEDS: predniSONE 10 MG TABLET PO SCH (10:24)
[2022-09-21] MEDS: mycophenolate mofetiL 250 MG CAPSULE PO SCH ×2 (10:24→21:19)
[2022-09-21] MEDS: SANDIMMUNE PO SCH ×2 (10:24→21:18)
[2022-09-21] MEDS: LISINOPRIL 10 MG TABLET (PRINIVIL) PO SCH (10:25)
[2022-09-21] MEDS: TAMSULOSIN HCL 0.4 MG CAP PO SCH (10:25)
[2022-09-21] MEDS: CALCIUM 500 MG/TAB PO SCH ×2 (10:25→21:17)
[2022-09-21] MEDS: PANTOPRAZOLE SODIUM 40 MG TAB PO SCH (10:25)
[2022-09-21] MEDS: ALLOPURINOL 300 MG TABLET (ZYLOPRIM) PO SCH (10:37)
[2022-09-21 11:14] VITALS: BP_SYST 154; PULSE 69; RESP 18; TEMP 97.4; O2SAT 96
[2022-09-21 16:05] VITALS: BP_SYST 140; PULSE 58; RESP 19; TEMP 97.6; O2SAT 97
[2022-09-21] MEDS: ACETAMINOPHEN 325 MG TABLET PO PRN (19:10)
[2022-09-21 19:50] VITALS: O2SAT 97
[2022-09-21] MEDS: SIMVASTATIN 20 MG TABLET PO SCH (21:17)
[2022-09-21 22:17] VITALS: BP_SYST 163; PULSE 59; RESP 16; TEMP 97.4; O2SAT 98
== END 2022-09-21 22:55 | disposition home health service (06) | DRG 871 ==
LOC: SED 00:14 → SMU 03:49
PROVIDERS: ADMIT Preventive Medicine Preventive Medicine/Occupational Environmental Medicine; ATTEND Preventive Medicine Preventive Medicine/Occupational Environmental Medicine
PROC: 02HV33Z Insertion of Infusion Device into Superior Vena Cava, Percutaneous Approach (ICD-10-PCS; principal; 2022-09-20)
PROC: B548ZZA Ultrasonography of Superior Vena Cava, Guidance (ICD-10-PCS; 2022-09-20)
DX: A41.51 Sepsis due to Escherichia coli [E. coli] (principal); N17.0 Acute kidney failure with tubular necrosis; D61.818 Other pancytopenia; E87.20 Acidosis, unspecified; E87.1 Hypo-osmolality and hyponatremia; Q61.3 Polycystic kidney, unspecified; N12 Tubulo-interstitial nephritis, not specified as acute or chronic; Z94.0 Kidney transplant status; D63.1 Anemia in chronic kidney disease; B96.20 Unspecified Escherichia coli [E. coli] as the cause of diseases classified elsewhere; E83.51 Hypocalcemia; E87.6 Hypokalemia; E83.39 Other disorders of phosphorus metabolism; N40.0 Benign prostatic hyperplasia without lower urinary tract symptoms; I12.9 Hypertensive chronic kidney disease with stage 1 through stage 4 chronic kidney disease, or unspecified chronic kidney disease; N18.9 Chronic kidney disease, unspecified; Y83.8 Other surgical procedures as the cause of abnormal reaction of the patient, or of later complication, without mention of misadventure at the time of the procedure; E78.5 Hyperlipidemia, unspecified; Z88.5 Allergy status to narcotic agent; Z88.0 Allergy status to penicillin; Z79.899 Other long term (current) drug therapy; Y92.89 Other specified places as the place of occurrence of the external cause
CPT/HCPCS: 36415; 71045; 72192-TC; 74018; 74150-TC; 76376; 76770; 80048; 80053; 81003; 83605; 83735; 84100; 84484; 85025; 85610-TC; 85651-TC; 85730-TC; 87040; 87086; 93005; 94640; 94760; 96365; 96366; 96367; 99291; C1769; J0696; J2185; J3480; J3490; J7030; J7040; J7050; J7512; J7515; J7517; J7613; J7626

== ENCOUNTER 2022-11-11 11:11 | Emergency (ER) | payer OTHER, MEDICAID ==
[~2022-11-11] VITALS: Ht 167.6 cm; Wt 77.1 kg
[~2022-11-11 11:11] MED LIST changes: -ALL300 PO; +ALLO300T2 PO; +CYCL25CA2 PO; -CYCL25CA7 PO; +ERTA1VIA IJ; +FLUT1AER INH; +LISI10TA29 PO; -METH1TAB PO; +METH1TAB79 PO; +OMEP20CA16 PO; +PRED10TA PO; -PRED5TAB PO; -SIMV-343 PO; +SIMV-43 PO; -TAMS-11 PO; +TAMS0.4C96 PO; -VANC750F2 IV
[2022-11-11 11:25] VITALS: BP_SYST 158; PULSE 72; RESP 18; TEMP 98.3; O2SAT 95
[2022-11-11 12:17] LABS: BASOPHILS % (AUTO) 0.3 % (0.0-2.0); EOSINOPHILS # (AUTO) 0.1 K/uL (0.0-0.4); EOSINOPHILS % (AUTO) 0.6 % (0.0-4.0); HEMATOCRIT 40.3 % (36-54); HEMOGLOBIN 13.4 g/dL (14.0-18.0); LYMPHOCYTES # (AUTO) 0.7 K/uL (1.0-5.5); LYMPHOCYTES % (AUTO) 8.2 % (20.5-51.5); MEAN CORPUSCULAR HEMOGLOBIN 32 pg (27-31); MEAN CORPUSCULAR HGB CONC 33 % (32-36); MEAN CORPUSCULAR VOLUME 95 fL (79.0-98.0); MONOCYTES # (AUTO) 0.4 K/uL (0.0-1.0); MONOCYTES % (AUTO) 4.6 % (1.7-9.3); NEUTROPHILS # (AUTO) 7.7 K/uL (1.8-7.7); NEUTROPHILS % (AUTO) 86.3 % (40.0-70.0); PLATELET COUNT (AUTO) 156 K/uL (130-430); RED BLOOD CELL COUNT(AUTO) 4.25 MIL/uL (4.2-6.2); RED CELL DISTRIBUTION WIDTH 13.6 % (9.0-15.0)
[2022-11-11 12:30] LABS: ANION GAP 7 (5-15); CALCIUM 8.7 mg/dL (8.4-11.0); CARBON DIOXIDE 26 mmol/L (23-29); CHLORIDE 105 mmol/L (98-107); CREATININE 1.62 mg/dL (0.55-1.30); GFR AFRICAN AMERICAN 55 mL/min (>90); GLUCOSE 120 mg/dL (74-106); SODIUM SERUM 138 mmol/L (136-145); UREA NITROGEN, BLOOD 31 mg/dL (8-21)
[2022-11-11 12:37] LABS: GFR NON AFRICAN-AMERICAN 45 mL/min (>90)
[2022-11-11 12:44] LABS: ALANINE AMINOTRANSFERASE 18 U/L (12-78); ALBUMIN 3.7 g/dL (3.4-4.8); AMYLASE 64 U/L (0-100); ASPARTATE AMINOTRANSFERASE 17 U/L (10-37); LACTATE DEHYDROGENASE 189 U/L (85-227); LIPASE 124 U/L (73-393); TOTAL BILIRUBIN 0.8 mg/dL (0.0-1.0); TOTAL PROTEIN, SERUM 6.7 g/dL (6.4-8.3)
[2022-11-11 13:20] LABS: ACETONE, SERUM NEGATIVE (NEGATIVE)
[2022-11-11] MEDS ORDERED: AMOX-423 PO (13:34)
[2022-11-11] MEDS ORDERED: IBUP-1969 PO (13:34)
[2022-11-11] MEDS ORDERED: ACET-2634 PO (13:40)
[2022-11-11 14:04] VITALS: BP_SYST 150; PULSE 63; RESP 18; TEMP 98.3; O2SAT 95
== END 2022-11-11 13:36 | disposition home or self-care (01) ==
LOC: SED 11:11
DX: K57.92 Diverticulitis of intestine, part unspecified, without perforation or abscess without bleeding (principal); R14.0 Abdominal distension (gaseous); K92.1 Melena; R11.0 Nausea; I10 Essential (primary) hypertension; Z88.5 Allergy status to narcotic agent; Z79.899 Other long term (current) drug therapy
CPT/HCPCS: 36415; 76376; 80053; 82009; 82150; 83605; 83615; 83690; 84484; 85025; 99284

== ENCOUNTER 2023-12-03 20:56 | Inpatient (IN) | payer OTHER, MEDICAID ==
[~2023-12-03] VITALS: Ht 167.6 cm; Wt 69.9 kg
[~2023-12-03 20:56] MED LIST changes: +ACET-2634 PO; +AMOX-423 PO; +CEFU250T85 PO; +IBUP-1969 PO; +METR-154 PO
[2023-12-03 21:26] VITALS: BP_SYST 138; PULSE 131; RESP 20; TEMP 102; O2SAT 93
[2023-12-03] MEDS: NACL 0.9% 1,000 ML IV ONE (21:45)
[2023-12-03] MEDS: ACETAMINOPHEN 325 MG TABLET PO ONE (21:45)
[2023-12-03 22:19] LABS: BASOPHILS # (AUTO) 0.1 K/uL (0.0-0.2); BASOPHILS % (AUTO) 1.1 % (0.0-2.0); EOSINOPHILS % (AUTO) 0.1 % (0.0-4.0); HEMATOCRIT 38.4 % (36-54); LYMPHOCYTES # (AUTO) 0.4 K/uL (1.0-5.5); LYMPHOCYTES % (AUTO) 4.3 % (20.5-51.5); MEAN CORPUSCULAR HEMOGLOBIN 32 pg (27-31); MEAN CORPUSCULAR HGB CONC 34 % (32-36); MEAN CORPUSCULAR VOLUME 94 fL (79.0-98.0); MONOCYTES # (AUTO) 0.6 K/uL (0.0-1.0); MONOCYTES % (AUTO) 5.8 % (1.7-9.3); NEUTROPHILS # (AUTO) 8.6 K/uL (1.8-7.7); NEUTROPHILS % (AUTO) 88.7 % (40.0-70.0); PLATELET COUNT (AUTO) 108 K/uL (130-430); RED BLOOD CELL COUNT(AUTO) 4.11 MIL/uL (4.2-6.2); RED CELL DISTRIBUTION WIDTH 13.4 % (9.0-15.0); WHITE BLOOD COUNT (AUTO) 9.7 K/uL (4.8-10.8)
[2023-12-03 22:26] LABS: BILIRUBIN,URINE NEGATIVE (NEGATIVE); BLOOD, URINE NEGATIVE (NEGATIVE); CLARITY/URINE CLEAR (CLEAR); COLOR,URINE YELLOW (YELLOW); GLUCOSE,URINE NEGATIVE (NEGATIVE); KETONES,URINE NEGATIVE (NEGATIVE); LEUKOCYTE ESTERASE ,URINE NEGATIVE (NEGATIVE); NITRITE, URINE NEGATIVE (NEGATIVE); PROTEIN URINE NEGATIVE (NEGATIVE); UROBILINOGEN,URINE 0.2 (0.2-1.0)
[2023-12-03 22:50] LABS: COVID19 ANTIGEN SOFIA FIA NEGATIVE (NEGATIVE)
[2023-12-03 22:52] LABS: INFLUENZA TYPE A Negative (NEGATIVE); INFLUENZA TYPE B NEGATIVE (NEGATIVE)
[2023-12-03 23:22] LABS: ALANINE AMINOTRANSFERASE 15 U/L (12-78); ALBUMIN 3.7 g/dL (3.4-4.8); ANION GAP 12 (5-15); ASPARTATE AMINOTRANSFERASE 14 U/L (10-37); BILIRUBIN,DIRECT 0.5 mg/dL (0.0-0.3); CALCIUM 8.5 mg/dL (8.4-11.0); CARBON DIOXIDE 20 mmol/L (23-29); CHLORIDE 106 mmol/L (98-107); CREATININE 1.81 mg/dL (0.55-1.30); GFR AFRICAN AMERICAN 48 mL/min (>90); GLUCOSE 96 mg/dL (74-106); LIPASE 66 U/L (16-77); SODIUM SERUM 138 mmol/L (136-145); TOTAL BILIRUBIN 1.4 mg/dL (0.0-1.0); TOTAL PROTEIN, SERUM 6.5 g/dL (6.4-8.3); UREA NITROGEN, BLOOD 36 mg/dL (8-21)
[2023-12-03 23:35] LABS: GFR NON AFRICAN-AMERICAN 40 mL/min (>90)
[2023-12-04] VITALS (8 sets, daily range): BP systolic 96–134; PULSE 77–103; RESP 16–20; TEMP 98.2–99.9; O2SAT 94–97
[2023-12-04] MEDS: NACL 0.9% 1,000 ML IV ONE (01:00)
[2023-12-04] MEDS ORDERED: ACETAMINOPHEN 325 MG TABLET ONE (01:03)
[2023-12-04] MEDS ORDERED: FINA5TAB11 PO (03:49)
[2023-12-04] MEDS: NACL 0.9% 1,000 ML IV SCH (04:00)
[2023-12-04] MEDS: HYDROcodone/ACETAMIN 5-325 MG TAB (NORCO/ VICODIN) PO ONE (06:06)
[2023-12-04] MEDS ORDERED: IBUPROFEN 600 MG TABLET PO PRN (08:30)
[2023-12-04] MEDS ORDERED: predniSONE 10 MG TABLET PO SCH (08:30)
[2023-12-04] MEDS ORDERED: OMEPRAZOLE Non-Formulary 20 MG CAPSULE.DR PO SCH (09:00)
[2023-12-04] MEDS ORDERED: FLUTICASONE/VILANTEROL 1 EACH BLST.W.DEV INH SCH (09:00)
[2023-12-04 10:39] LABS: BASOPHILS % (AUTO) 0.4 % (0.0-2.0); EOSINOPHILS % (AUTO) 0.1 % (0.0-4.0); HEMATOCRIT 40.6 % (36-54); HEMOGLOBIN 13.1 g/dL (14.0-18.0); LYMPHOCYTES # (AUTO) 0.5 K/uL (1.0-5.5); LYMPHOCYTES % (AUTO) 4.7 % (20.5-51.5); MEAN CORPUSCULAR HEMOGLOBIN 30 pg (27-31); MEAN CORPUSCULAR HGB CONC 32 % (32-36); MEAN CORPUSCULAR VOLUME 94 fL (79.0-98.0); MONOCYTES # (AUTO) 0.6 K/uL (0.0-1.0); NEUTROPHILS # (AUTO) 9.1 K/uL (1.8-7.7); NEUTROPHILS % (AUTO) 88.8 % (40.0-70.0); PLATELET COUNT (AUTO) 96 K/uL (130-430); RED CELL DISTRIBUTION WIDTH 13.2 % (9.0-15.0); WHITE BLOOD COUNT (AUTO) 10.2 K/uL (4.8-10.8)
[2023-12-04 11:01] LABS: ALBUMIN 2.9 g/dL (3.4-4.8); CALCIUM 7.7 mg/dL (8.4-11.0); CREATININE 1.73 mg/dL (0.55-1.30); POTASSIUM 4.3 mmol/L (3.5-5.1); TOTAL BILIRUBIN 1.8 mg/dL (0.0-1.0); TOTAL PROTEIN, SERUM 5.5 g/dL (6.4-8.3)
[2023-12-04] MEDS: PANTOPRAZOLE SODIUM 40 MG TAB PO ONE (12:56)
[2023-12-04] MEDS: predniSONE 5 MG TABLET PO ONE (12:56)
[2023-12-04] MEDS: TAMSULOSIN HCL 0.4 MG CAP PO ONE (12:56)
[2023-12-04] MEDS: mycophenolate mofetiL 250 MG CAPSULE PO ONE (12:57)
[2023-12-04] MEDS: SANDIMMUNE PO ONE (12:57)
[2023-12-04] MEDS: ACETAMINOPHEN 500 MG TABLET PO PRN (12:58)
[2023-12-04] MEDS: FINASTERIDE 5 MG TABLET (PROSCAR) PO ONE (13:04)
[2023-12-04] MEDS: ALBUTEROL SULFATE 0.083% 2.5 MG/3 ML VIAL.NEB INH SCH (19:46)
[2023-12-04] MEDS: BUDESONIDE 0.5 MG/2 ML AMPUL.NEB INH SCH (19:46)
[2023-12-04] MEDS: SIMVASTATIN 20 MG TABLET PO SCH (23:11)
[2023-12-04] MEDS: ALLOPURINOL 300 MG TABLET (ZYLOPRIM) PO SCH (23:12)
[2023-12-04] MEDS: SANDIMMUNE PO SCH (23:13)
[2023-12-04] MEDS: mycophenolate mofetiL 250 MG CAPSULE PO SCH (23:13)
[2023-12-05] VITALS (9 sets, daily range): BP systolic 124–136; PULSE 102–127; RESP 18–24; TEMP 97.8–100.9; O2SAT 95–100
[2023-12-05] MEDS: TAMSULOSIN HCL 0.4 MG CAP PO SCH (09:28)
[2023-12-05] MEDS: ACETAMINOPHEN 500 MG TABLET PO PRN (09:28)
[2023-12-05] MEDS: predniSONE 5 MG TABLET PO SCH (09:29)
[2023-12-05] MEDS: LISINOPRIL 10 MG TABLET (PRINIVIL) PO SCH (09:29)
[2023-12-05] MEDS: PANTOPRAZOLE SODIUM 40 MG TAB PO SCH (09:29)
[2023-12-05] MEDS: FINASTERIDE 5 MG TABLET (PROSCAR) PO SCH (09:42)
[2023-12-05 10:56] LABS: BASOPHILS % (AUTO) 0.1 % (0.0-2.0); EOSINOPHILS % (AUTO) 0.1 % (0.0-4.0); HEMATOCRIT 36.1 % (36-54); HEMOGLOBIN 11.8 g/dL (14.0-18.0); LYMPHOCYTES # (AUTO) 0.2 K/uL (1.0-5.5); LYMPHOCYTES % (AUTO) 1.4 % (20.5-51.5); MEAN CORPUSCULAR HEMOGLOBIN 31 pg (27-31); MEAN CORPUSCULAR HGB CONC 33 % (32-36); MEAN CORPUSCULAR VOLUME 95 fL (79.0-98.0); MONOCYTES # (AUTO) 0.3 K/uL (0.0-1.0); MONOCYTES % (AUTO) 2.6 % (1.7-9.3); NEUTROPHILS # (AUTO) 10.1 K/uL (1.8-7.7); NEUTROPHILS % (AUTO) 95.8 % (40.0-70.0); PLATELET COUNT (AUTO) 92 K/uL (130-430); RED BLOOD CELL COUNT(AUTO) 3.81 MIL/uL (4.2-6.2); RED CELL DISTRIBUTION WIDTH 13.8 % (9.0-15.0); WHITE BLOOD COUNT (AUTO) 10.5 K/uL (4.8-10.8)
[2023-12-05 11:39] LABS: ALBUMIN 2.7 g/dL (3.4-4.8); CALCIUM 7.8 mg/dL (8.4-11.0); CREATININE 1.88 mg/dL (0.55-1.30); POTASSIUM 3.9 mmol/L (3.5-5.1); TOTAL BILIRUBIN 1.3 mg/dL (0.0-1.0); TOTAL PROTEIN, SERUM 5.7 g/dL (6.4-8.3)
[2023-12-06] VITALS (9 sets, daily range): BP systolic 114–148; PULSE 90–103; RESP 18–19; TEMP 98.3–98.8; O2SAT 96–99
[2023-12-06 06:30] LABS: BASOPHILS % (AUTO) 0.1 % (0.0-2.0); EOSINOPHILS % (AUTO) 0.3 % (0.0-4.0); HEMATOCRIT 36.4 % (36-54); HEMOGLOBIN 11.7 g/dL (14.0-18.0); LYMPHOCYTES # (AUTO) 0.3 K/uL (1.0-5.5); LYMPHOCYTES % (AUTO) 4.2 % (20.5-51.5); MEAN CORPUSCULAR HEMOGLOBIN 31 pg (27-31); MEAN CORPUSCULAR HGB CONC 32 % (32-36); MEAN CORPUSCULAR VOLUME 97 fL (79.0-98.0); MONOCYTES # (AUTO) 0.7 K/uL (0.0-1.0); MONOCYTES % (AUTO) 8.3 % (1.7-9.3); NEUTROPHILS # (AUTO) 7.2 K/uL (1.8-7.7); NEUTROPHILS % (AUTO) 87.1 % (40.0-70.0); PLATELET COUNT (AUTO) 78 K/uL (130-430); RED BLOOD CELL COUNT(AUTO) 3.75 MIL/uL (4.2-6.2); RED CELL DISTRIBUTION WIDTH 13.8 % (9.0-15.0); WHITE BLOOD COUNT (AUTO) 8.3 K/uL (4.8-10.8)
[2023-12-06 07:08] LABS: ALBUMIN 2.5 g/dL (3.4-4.8); CREATININE 1.7 mg/dL (0.55-1.30); PHOSPHORUS 2.4 mg/dL (2.7-4.5); POTASSIUM 4.3 mmol/L (3.5-5.1); TOTAL BILIRUBIN 1.3 mg/dL (0.0-1.0); TOTAL PROTEIN, SERUM 5.8 g/dL (6.4-8.3)
[2023-12-06] MEDS: 0.45% NACL 1,000 ML IV SCH (17:45)
[2023-12-06] MEDS: IPRATROPIUM/ALBUTEROL SULFATE 3 ML AMPUL.NEB (DUONEB) INH SCH (19:44)
[2023-12-07] VITALS (11 sets, daily range): BP systolic 120–139; PULSE 77–102; RESP 16–17; TEMP 98–100.1; O2SAT 96–98
[2023-12-07 06:10] LABS: BASOPHILS % (AUTO) 0.3 % (0.0-2.0); EOSINOPHILS % (AUTO) 0.6 % (0.0-4.0); HEMATOCRIT 30.9 % (36-54); HEMOGLOBIN 10.2 g/dL (14.0-18.0); LYMPHOCYTES # (AUTO) 0.3 K/uL (1.0-5.5); LYMPHOCYTES % (AUTO) 4.7 % (20.5-51.5); MEAN CORPUSCULAR HEMOGLOBIN 31 pg (27-31); MEAN CORPUSCULAR HGB CONC 33 % (32-36); MEAN CORPUSCULAR VOLUME 93 fL (79.0-98.0); MONOCYTES # (AUTO) 0.7 K/uL (0.0-1.0); NEUTROPHILS # (AUTO) 5.6 K/uL (1.8-7.7); NEUTROPHILS % (AUTO) 83.4 % (40.0-70.0); PLATELET COUNT (AUTO) 88 K/uL (130-430); RED BLOOD CELL COUNT(AUTO) 3.32 MIL/uL (4.2-6.2); RED CELL DISTRIBUTION WIDTH 13.3 % (9.0-15.0); WHITE BLOOD COUNT (AUTO) 6.7 K/uL (4.8-10.8)
[2023-12-07 06:40] LABS: ALBUMIN 2.3 g/dL (3.4-4.8); CALCIUM 8.1 mg/dL (8.4-11.0); CREATININE 1.6 mg/dL (0.55-1.30); POTASSIUM 3.7 mmol/L (3.5-5.1); TOTAL BILIRUBIN 0.9 mg/dL (0.0-1.0); TOTAL PROTEIN, SERUM 5.6 g/dL (6.4-8.3)
[2023-12-07] MEDS ORDERED: CEFEPIME 2 GM in D5W 100 ML IV SCH (11:00)
[2023-12-08] VITALS (11 sets, daily range): BP systolic 124–142; PULSE 84–108; RESP 14–18; TEMP 98.5–100.9; O2SAT 95–100
[2023-12-08 08:45] LABS: BASOPHILS % (AUTO) 0.2 % (0.0-2.0); EOSINOPHILS % (AUTO) 0.6 % (0.0-4.0); HEMATOCRIT 30.9 % (36-54); HEMOGLOBIN 10.3 g/dL (14.0-18.0); LYMPHOCYTES # (AUTO) 0.3 K/uL (1.0-5.5); LYMPHOCYTES % (AUTO) 4.7 % (20.5-51.5); MEAN CORPUSCULAR HEMOGLOBIN 31 pg (27-31); MEAN CORPUSCULAR HGB CONC 33 % (32-36); MEAN CORPUSCULAR VOLUME 93 fL (79.0-98.0); MONOCYTES # (AUTO) 0.7 K/uL (0.0-1.0); MONOCYTES % (AUTO) 11.5 % (1.7-9.3); PLATELET COUNT (AUTO) 99 K/uL (130-430); RED BLOOD CELL COUNT(AUTO) 3.33 MIL/uL (4.2-6.2); RED CELL DISTRIBUTION WIDTH 13.6 % (9.0-15.0)
[2023-12-08 08:50] LABS: ALBUMIN 2.2 g/dL (3.4-4.8); CREATININE 1.48 mg/dL (0.55-1.30); POTASSIUM 3.5 mmol/L (3.5-5.1); TOTAL BILIRUBIN 1.5 mg/dL (0.0-1.0); TOTAL PROTEIN, SERUM 5.6 g/dL (6.4-8.3)
[2023-12-08] MEDS: CEFEPIME 2 GM in D5W 100 ML IV SCH (09:31)
[2023-12-09] VITALS (10 sets, daily range): BP systolic 116–136; PULSE 87–121; RESP 16–21; TEMP 98.6–101.8; O2SAT 95–99
[2023-12-09 05:38] LABS: BASOPHILS % (AUTO) 0.2 % (0.0-2.0); EOSINOPHILS # (AUTO) 0.1 K/uL (0.0-0.4); EOSINOPHILS % (AUTO) 0.7 % (0.0-4.0); HEMATOCRIT 30.1 % (36-54); HEMOGLOBIN 9.8 g/dL (14.0-18.0); LYMPHOCYTES # (AUTO) 0.4 K/uL (1.0-5.5); LYMPHOCYTES % (AUTO) 5.9 % (20.5-51.5); MEAN CORPUSCULAR HEMOGLOBIN 31 pg (27-31); MEAN CORPUSCULAR HGB CONC 33 % (32-36); MEAN CORPUSCULAR VOLUME 94 fL (79.0-98.0); MONOCYTES # (AUTO) 0.8 K/uL (0.0-1.0); NEUTROPHILS # (AUTO) 5.9 K/uL (1.8-7.7); NEUTROPHILS % (AUTO) 82.2 % (40.0-70.0); PLATELET COUNT (AUTO) 124 K/uL (130-430); RED BLOOD CELL COUNT(AUTO) 3.22 MIL/uL (4.2-6.2); RED CELL DISTRIBUTION WIDTH 13.3 % (9.0-15.0); WHITE BLOOD COUNT (AUTO) 7.2 K/uL (4.8-10.8)
[2023-12-09 06:48] LABS: ALBUMIN 2.3 g/dL (3.4-4.8); CALCIUM 8.1 mg/dL (8.4-11.0); CREATININE 1.56 mg/dL (0.55-1.30); POTASSIUM 3.9 mmol/L (3.5-5.1); TOTAL BILIRUBIN 1.1 mg/dL (0.0-1.0); TOTAL PROTEIN, SERUM 5.8 g/dL (6.4-8.3)
[2023-12-09 11:04] LABS: URINE SODIUM, RANDOM 95 mmol/L (40-220)
[2023-12-09 18:28] LABS: INR 1.1 (0.80-1.20); PROTHROMBIN TIME 11.5 SECS (9.5-12.5)
[2023-12-10] VITALS (13 sets, daily range): BP systolic 119–149; PULSE 73–107; RESP 16–18; TEMP 98.2–100.3; O2SAT 95–98
[2023-12-10 04:15] LABS: BILIRUBIN,URINE NEGATIVE (NEGATIVE); BLOOD, URINE NEGATIVE (NEGATIVE); CLARITY/URINE CLEAR (CLEAR); COLOR,URINE YELLOW (YELLOW); GLUCOSE,URINE NEGATIVE (NEGATIVE); KETONES,URINE NEGATIVE (NEGATIVE); LEUKOCYTE ESTERASE ,URINE NEGATIVE (NEGATIVE); NITRITE, URINE NEGATIVE (NEGATIVE); PROTEIN URINE NEGATIVE (NEGATIVE)
[2023-12-10 05:33] LABS: BASOPHILS % (AUTO) 0.1 % (0.0-2.0); EOSINOPHILS # (AUTO) 0.1 K/uL (0.0-0.4); EOSINOPHILS % (AUTO) 0.7 % (0.0-4.0); HEMATOCRIT 28.4 % (36-54); HEMOGLOBIN 9.4 g/dL (14.0-18.0); LYMPHOCYTES # (AUTO) 0.5 K/uL (1.0-5.5); LYMPHOCYTES % (AUTO) 6.2 % (20.5-51.5); MEAN CORPUSCULAR HEMOGLOBIN 31 pg (27-31); MEAN CORPUSCULAR HGB CONC 33 % (32-36); MEAN CORPUSCULAR VOLUME 93 fL (79.0-98.0); MONOCYTES # (AUTO) 0.7 K/uL (0.0-1.0); MONOCYTES % (AUTO) 8.6 % (1.7-9.3); NEUTROPHILS # (AUTO) 6.8 K/uL (1.8-7.7); NEUTROPHILS % (AUTO) 84.4 % (40.0-70.0); PLATELET COUNT (AUTO) 169 K/uL (130-430); RED BLOOD CELL COUNT(AUTO) 3.04 MIL/uL (4.2-6.2); RED CELL DISTRIBUTION WIDTH 13.6 % (9.0-15.0)
[2023-12-10 06:02] LABS: ALBUMIN 2.1 g/dL (3.4-4.8); CALCIUM 8.3 mg/dL (8.4-11.0); CREATININE 1.53 mg/dL (0.55-1.30); TOTAL BILIRUBIN 0.6 mg/dL (0.0-1.0); TOTAL PROTEIN, SERUM 5.6 g/dL (6.4-8.3)
[2023-12-11] VITALS (10 sets, daily range): BP systolic 116–143; PULSE 84–112; RESP 15–20; TEMP 97.6–100.2; O2SAT 96–98
[2023-12-11 08:54] LABS: BASOPHILS % (AUTO) 0.4 % (0.0-2.0); EOSINOPHILS # (AUTO) 0.1 K/uL (0.0-0.4); EOSINOPHILS % (AUTO) 0.4 % (0.0-4.0); HEMATOCRIT 35.8 % (36-54); HEMOGLOBIN 11.6 g/dL (14.0-18.0); LYMPHOCYTES # (AUTO) 0.8 K/uL (1.0-5.5); LYMPHOCYTES % (AUTO) 7.1 % (20.5-51.5); MEAN CORPUSCULAR HEMOGLOBIN 31 pg (27-31); MEAN CORPUSCULAR HGB CONC 32 % (32-36); MEAN CORPUSCULAR VOLUME 94 fL (79.0-98.0); MONOCYTES # (AUTO) 1.1 K/uL (0.0-1.0); NEUTROPHILS # (AUTO) 9.8 K/uL (1.8-7.7); NEUTROPHILS % (AUTO) 83.1 % (40.0-70.0); PLATELET COUNT (AUTO) 337 K/uL (130-430); RED BLOOD CELL COUNT(AUTO) 3.81 MIL/uL (4.2-6.2); RED CELL DISTRIBUTION WIDTH 13.3 % (9.0-15.0); WHITE BLOOD COUNT (AUTO) 11.8 K/uL (4.8-10.8)
[2023-12-11 08:55] LABS: ALBUMIN 2.7 g/dL (3.4-4.8); CALCIUM 9.1 mg/dL (8.4-11.0); CREATININE 1.56 mg/dL (0.55-1.30); POTASSIUM 3.9 mmol/L (3.5-5.1); TOTAL BILIRUBIN 0.8 mg/dL (0.0-1.0); TOTAL PROTEIN, SERUM 7.1 g/dL (6.4-8.3)
[2023-12-11] MEDS: ACETAMINOPHEN 325 MG TABLET PO ONE (11:41)
[2023-12-12] VITALS (10 sets, daily range): BP systolic 127–142; PULSE 83–91; RESP 16–18; TEMP 97.6–98.6; O2SAT 95–99
[2023-12-12 08:07] LABS: QUANTIFERON TB GOLD Indeterminate (Negative)
[2023-12-12 09:48] LABS: BASOPHILS % (AUTO) 0.4 % (0.0-2.0); EOSINOPHILS # (AUTO) 0.1 K/uL (0.0-0.4); EOSINOPHILS % (AUTO) 1.3 % (0.0-4.0); HEMATOCRIT 31.3 % (36-54); HEMOGLOBIN 10.2 g/dL (14.0-18.0); LYMPHOCYTES # (AUTO) 0.6 K/uL (1.0-5.5); MEAN CORPUSCULAR HEMOGLOBIN 31 pg (27-31); MEAN CORPUSCULAR HGB CONC 33 % (32-36); MEAN CORPUSCULAR VOLUME 95 fL (79.0-98.0); MONOCYTES # (AUTO) 0.6 K/uL (0.0-1.0); MONOCYTES % (AUTO) 8.2 % (1.7-9.3); NEUTROPHILS # (AUTO) 5.6 K/uL (1.8-7.7); NEUTROPHILS % (AUTO) 81.1 % (40.0-70.0); PLATELET COUNT (AUTO) 289 K/uL (130-430); RED BLOOD CELL COUNT(AUTO) 3.31 MIL/uL (4.2-6.2); RED CELL DISTRIBUTION WIDTH 13.6 % (9.0-15.0); WHITE BLOOD COUNT (AUTO) 6.9 K/uL (4.8-10.8)
[2023-12-12 11:01] LABS: ALBUMIN 2.4 g/dL (3.4-4.8); CALCIUM 8.4 mg/dL (8.4-11.0); CREATININE 1.54 mg/dL (0.55-1.30); POTASSIUM 3.6 mmol/L (3.5-5.1); TOTAL BILIRUBIN 0.5 mg/dL (0.0-1.0); TOTAL PROTEIN, SERUM 6.3 g/dL (6.4-8.3)
[2023-12-13] VITALS (10 sets, daily range): BP systolic 101–138; PULSE 66–89; RESP 16–18; TEMP 98–99; O2SAT 94–97
[2023-12-13] MEDS: BENZOCAINE 20% 0.5mL UD SPRAY MM ONE (08:51)
[2023-12-13] MEDS: LIDOCAINE 2% JELLY UROJECT 10 ML MM ONE (08:51)
[2023-12-13] MEDS: fentaNYL CITRATE/PF 100 MCG/2 ML AMP ONE (08:51)
[2023-12-13] MEDS: MIDAZOLAM HCL 5 MG/5 ML VIAL ONE (08:52)
[2023-12-13 09:40] LABS: BASOPHILS % (AUTO) 0.4 % (0.0-2.0); EOSINOPHILS # (AUTO) 0.1 K/uL (0.0-0.4); HEMATOCRIT 32.6 % (36-54); HEMOGLOBIN 10.7 g/dL (14.0-18.0); LYMPHOCYTES # (AUTO) 0.8 K/uL (1.0-5.5); LYMPHOCYTES % (AUTO) 10.5 % (20.5-51.5); MEAN CORPUSCULAR HEMOGLOBIN 31 pg (27-31); MEAN CORPUSCULAR HGB CONC 33 % (32-36); MEAN CORPUSCULAR VOLUME 94 fL (79.0-98.0); MONOCYTES # (AUTO) 0.5 K/uL (0.0-1.0); MONOCYTES % (AUTO) 6.3 % (1.7-9.3); NEUTROPHILS # (AUTO) 6.2 K/uL (1.8-7.7); NEUTROPHILS % (AUTO) 81.8 % (40.0-70.0); PLATELET COUNT (AUTO) 354 K/uL (130-430); RED BLOOD CELL COUNT(AUTO) 3.47 MIL/uL (4.2-6.2); RED CELL DISTRIBUTION WIDTH 13.4 % (9.0-15.0); WHITE BLOOD COUNT (AUTO) 7.6 K/uL (4.8-10.8)
[2023-12-13 09:56] LABS: ALBUMIN 2.5 g/dL (3.4-4.8); CALCIUM 8.6 mg/dL (8.4-11.0); CREATININE 1.47 mg/dL (0.55-1.30); POTASSIUM 3.5 mmol/L (3.5-5.1); TOTAL BILIRUBIN 0.5 mg/dL (0.0-1.0); TOTAL PROTEIN, SERUM 6.4 g/dL (6.4-8.3)
[2023-12-14] VITALS (11 sets, daily range): BP systolic 127–139; PULSE 72–84; RESP 16–22; TEMP 97.4–98.3; O2SAT 95–99
[2023-12-14 10:29] LABS: BASOPHILS % (AUTO) 0.4 % (0.0-2.0); EOSINOPHILS # (AUTO) 0.1 K/uL (0.0-0.4); EOSINOPHILS % (AUTO) 1.1 % (0.0-4.0); HEMATOCRIT 31.8 % (36-54); HEMOGLOBIN 10.5 g/dL (14.0-18.0); LYMPHOCYTES % (AUTO) 11.7 % (20.5-51.5); MEAN CORPUSCULAR HEMOGLOBIN 31 pg (27-31); MEAN CORPUSCULAR HGB CONC 33 % (32-36); MEAN CORPUSCULAR VOLUME 94 fL (79.0-98.0); MONOCYTES # (AUTO) 0.6 K/uL (0.0-1.0); MONOCYTES % (AUTO) 6.9 % (1.7-9.3); NEUTROPHILS # (AUTO) 6.7 K/uL (1.8-7.7); NEUTROPHILS % (AUTO) 79.9 % (40.0-70.0); PLATELET COUNT (AUTO) 395 K/uL (130-430); RED BLOOD CELL COUNT(AUTO) 3.39 MIL/uL (4.2-6.2); WHITE BLOOD COUNT (AUTO) 8.3 K/uL (4.8-10.8)
[2023-12-14 10:46] LABS: ALBUMIN 2.5 g/dL (3.4-4.8); CALCIUM 8.6 mg/dL (8.4-11.0); CREATININE 1.38 mg/dL (0.55-1.30); POTASSIUM 3.6 mmol/L (3.5-5.1); TOTAL BILIRUBIN 0.4 mg/dL (0.0-1.0); TOTAL PROTEIN, SERUM 6.3 g/dL (6.4-8.3)
[2023-12-15] VITALS (7 sets, daily range): BP systolic 133–154; PULSE 62–71; RESP 16–18; TEMP 96.8–98.9; O2SAT 96–99
[2023-12-15 07:08] LABS: BASOPHILS % (AUTO) 0.4 % (0.0-2.0); EOSINOPHILS # (AUTO) 0.1 K/uL (0.0-0.4); EOSINOPHILS % (AUTO) 0.9 % (0.0-4.0); HEMATOCRIT 29.7 % (36-54); HEMOGLOBIN 9.8 g/dL (14.0-18.0); LYMPHOCYTES % (AUTO) 10.9 % (20.5-51.5); MEAN CORPUSCULAR HEMOGLOBIN 31 pg (27-31); MEAN CORPUSCULAR HGB CONC 33 % (32-36); MEAN CORPUSCULAR VOLUME 94 fL (79.0-98.0); MONOCYTES # (AUTO) 0.4 K/uL (0.0-1.0); MONOCYTES % (AUTO) 4.8 % (1.7-9.3); NEUTROPHILS # (AUTO) 7.6 K/uL (1.8-7.7); PLATELET COUNT (AUTO) 424 K/uL (130-430); RED BLOOD CELL COUNT(AUTO) 3.17 MIL/uL (4.2-6.2); RED CELL DISTRIBUTION WIDTH 13.3 % (9.0-15.0); WHITE BLOOD COUNT (AUTO) 9.1 K/uL (4.8-10.8)
[2023-12-15 07:52] LABS: ALBUMIN 2.5 g/dL (3.4-4.8); CALCIUM 8.6 mg/dL (8.4-11.0); CREATININE 1.42 mg/dL (0.55-1.30); POTASSIUM 4.1 mmol/L (3.5-5.1); TOTAL BILIRUBIN 0.5 mg/dL (0.0-1.0); TOTAL PROTEIN, SERUM 6.2 g/dL (6.4-8.3)
[2023-12-15] MEDS ORDERED: iohexoL 240 mgI/mL, 50 ML INFUS..BTL IV ONE (16:19)
[2023-12-15] MEDS ORDERED: LIDOCAINE 1% 10 MG/ML, 20 ML MDV ONE (18:39)
[2023-12-15] MEDS ORDERED: LR 1,000 ML IV.SOLN IV ONE (18:39)
[2023-12-15] MEDS ORDERED: BUPIVACAINE /PF 0.25% 30 ML VIAL INJ ONE (18:39)
[2023-12-15] MEDS ORDERED: PROPOFOL 200MG/ 20ML VIAL (DIPRIVAN) IV ONE (18:39)
[2023-12-15] MEDS ORDERED: WATER FOR IRRIGATION,STERILE 1,000 ML IRRIG.SOLN IR ONE (18:39)
[2023-12-15] MEDS ORDERED: ONDANSETRON HCL 4 MG/2 ML VIAL IVP PRN (19:15)
[2023-12-15] MEDS ORDERED: LR 1,000 ML IV ONE (19:15)
[2023-12-15] MEDS ORDERED: fentaNYL CITRATE/PF 100 MCG/2 ML AMP IVP PRN ×3 (19:15)
[2023-12-15] MEDS ORDERED: ROCI2 IM (22:38)
== END 2023-12-15 22:55 | disposition home health service (06) | DRG 871 ==
LOC: SED 20:56 → STU 12-04 03:48 → SMU 12-04 09:54
PROVIDERS: ADMIT Student in an Organized Health Care Education/Training Program; ATTEND Student in an Organized Health Care Education/Training Program
PROC: 02HV33Z Insertion of Infusion Device into Superior Vena Cava, Percutaneous Approach (ICD-10-PCS; 2023-12-07)
PROC: B548ZZA Ultrasonography of Superior Vena Cava, Guidance (ICD-10-PCS; 2023-12-07)
PROC: B24BZZ4 Ultrasonography of Heart with Aorta, Transesophageal (ICD-10-PCS; principal; 2023-12-09)
PROC: 0JH63XZ Insertion of Tunneled Vascular Access Device into Chest Subcutaneous Tissue and Fascia, Percutaneous Approach (ICD-10-PCS; 2023-12-15)
PROC: 02HV33Z Insertion of Infusion Device into Superior Vena Cava, Percutaneous Approach (ICD-10-PCS; 2023-12-15)
PROC: B5181ZA Fluoroscopy of Superior Vena Cava using Low Osmolar Contrast, Guidance (ICD-10-PCS; 2023-12-15)
PROC: 02PYX3Z Removal of Infusion Device from Great Vessel, External Approach (ICD-10-PCS; 2023-12-15)
DX: A41.9 Sepsis, unspecified organism (principal); N17.0 Acute kidney failure with tubular necrosis; T86.12 Kidney transplant failure; Q61.3 Polycystic kidney, unspecified; I38 Endocarditis, valve unspecified; N12 Tubulo-interstitial nephritis, not specified as acute or chronic; D84.9 Immunodeficiency, unspecified; E78.5 Hyperlipidemia, unspecified; N18.31 Chronic kidney disease, stage 3a; I12.9 Hypertensive chronic kidney disease with stage 1 through stage 4 chronic kidney disease, or unspecified chronic kidney disease; N40.0 Benign prostatic hyperplasia without lower urinary tract symptoms; Z20.822 Contact with and (suspected) exposure to COVID-19; Y83.8 Other surgical procedures as the cause of abnormal reaction of the patient, or of later complication, without mention of misadventure at the time of the procedure; Z79.899 Other long term (current) drug therapy; Z88.8 Allergy status to other drugs, medicaments and biological substances
CPT/HCPCS: 36415; 71045; 76000; 76770; 80048; 80053; 80076; 81001; 81003; 82435; 82570; 83605; 83690; 83735; 84100; 84302; 84484; 85025; 85610; 85651; 85730; 86480; 86886; 86900; 86901; 87040; 87086; 87305; 87497; 93005; 93312; 94070; 94640; 94664; 94760; 99285; C1751; J0692; J0696; J2003; J2250; J2704; J3010; J3490; J7030; J7060; J7120; J7512; J7515; J7517; J7626; Q9966